=== PATIENT | male | born 1965 | race African-American/Black ===

== ENCOUNTER 2024-05-28 13:39 | Emergency (ER) | payer SELFPAY ==
[2024-05-28] MEDS ORDERED: Ibuprofen 200 MG TAB ONE (15:10)
[2024-05-28] MEDS ORDERED: HYDROcodone/Acetaminophen 5/325 mg Tablet ONE (16:10)
== END 2024-05-28 16:42 | disposition home or self-care (01) ==
LOC: ERS 13:39
DX: S62.317A Displaced fracture of base of fifth metacarpal bone, left hand, initial encounter for closed fracture (principal); F17.290 Nicotine dependence, other tobacco product, uncomplicated; W22.09XA Striking against other stationary object, initial encounter; Z55.6 Problems related to health literacy
CPT/HCPCS: 29125; 99283